=== PATIENT | female | born 1990 | race Caucasian/White ===

== ENCOUNTER → 2019-10-08 15:48 | Outpatient (BNVA) | payer MEDICAID, SELFPAY | PROVIDERS: Family Provider Obstetrics & Gynecology; PCP Family Medicine; Visit Provider Nurse Practitioner Family | DX: S69.91XA Unspecified injury of right wrist, hand and finger(s), initial encounter (principal); W23.0XXA Caught, crushed, jammed, or pinched between moving objects, initial encounter; M79.644 Pain in right finger(s); M79.9 Soft tissue disorder, unspecified | CPT/HCPCS: 73130 ==

== ENCOUNTER 2019-12-04 16:26 | Emergency (ER) | payer MEDICAID, SELFPAY ==
[2019-12-04 16:33] VITALS: BP 119/71; PULSE 109; RESP 17; TEMP 36.6; O2SAT 97; BMI 24.7
--- NOTE | 2019-12-04 17:23 | ED_ITS ---
HPI - URI/Sore Throat General: Chief Complaint: Shortness of Breath/Dyspnea Stated Complaint: fever Time Seen by Provider: 12/04/19 17:05 Source: patient Mode of arrival: ambulatory Limitations: no limitations History of Present Illness: HPI Narrative: Patient is a 29-year-old female who presents to ED today along with several of her children who are also being seen for similar symptoms. Patient states she has had a cough over the past couple of days. Patient states she was told she had a fever when she checked and however documentation states fever was 98.0. She is concerned because she has a son that lives/travels in [facility] and has recently been tested for COVID-19. Results are still pending at this time. Patient states she feels fine and has not been running fevers at home. She states cough is mild and dry. She has not experienced any difficulty breathing or shortness of breath. MD elicited complaint: cough Able to tolerate fluids by mouth: Yes Exacerbating factors: nothing Relieving factors: nothing Context: sick contacts (several childen sick with similar symptoms ) Associated symptoms: Reports no associated symptoms; Deny abdominal pain, chills, chest pain, diarrhea, ear or mastoid pain, fever(s), headache(s), nasal congestion, nausea, sinus pain or vomiting Treatments prior to arrival: none Review of Systems Const: Denies: fever, chills, body aches, change in appetite, change in weight or fatigue Eyes: Denies: change in vision, blurry vision, photophobia, eye discomfort or eye discharge ENMT: Denies: throat pain, enlarged tonsils, painful swallowing, swelling of lips/tongue, oral sores/lesions, ear pain, ear discharge, nasal discharge, nasal congestion, post nasal drip or facial/sinus pain Card: Denies: chest pain, palpitations, irregular heart rhythm, edema, lightheadedness, syncope, pre-syncope, shortness of breath on exertion or shortness of breath when lying down Resp: Reports: non-productive cough; Denies: shortness of breath, productive cough, pain on inspiration, change in phlegm color, coughing up blood or chest congestion GI: Denies: abdominal pain, nausea, vomiting or diarrhea Musc: Denies: neck pain or back pain Skin/Breast: Denies: rash Neuro: Denies: headache All/Imm: Denies: facial swelling or seasonal allergies PFS ED PFSH: Social History (Updated 10/08/19 @ 15:36 by Piper Dang LPN) Smoking and tobacco status: current every day smoker Alcohol intake: never Physical Exam Const: COMMON NORMALS: no apparent distress, average body habitus, oriented x3, no limitations, healthy appearing, alert and well nourished HENMT: COMMON NORMALS: normocephalic, head/scalp atraumatic, hearing grossly normal bilaterally, external ears normal, EAC's normal, TM's normal bilaterally, external nose normal, nasal mucous membranes and turbinates normal, moist oral mucous membranes and oropharynx normal HEAD & SCALP: normal to inspection, normocephalic and atraumatic FACE & SINUS: normal facial exam and sinuses nontender NOSE: external nose normal and nasal mucous membranes and turbinates normal EXTERNAL EAR: Yes external ears normal EXTERNAL AUDITORY CANAL: EAC's normal TYMPANIC MEMBRANE: TM's normal bilaterally THROAT: posterior oropharynx normal, tonsils normal and uvula midline Eye: COMMON NORMALS: PERRL, EOMs intact bilaterally and conjunctivae normal CONJUNCTIVA: Yes conjunctivae normal PUPIL: Yes PERRL Neck/C-Spine: COMMON NORMALS: no lymphadenopathy Resp: COMMON NORMALS: normal respiratory effort and clear to auscultation bilaterally AUSCULTATION: clear to auscultation bilaterally Cardio: COMMON NORMALS: regular rate and regular rhythm RATE: regular rate RHYTHM: regular rhythm Extremity: COMMON NORMALS: normal to inspection Neuro: COMMON NORMALS: oriented x3 SENSORIUM/ORIENTATION: Yes alert Skin: COMMON NORMALS: no rashes or lesions noted GENERAL SKIN EXAM: no rashes or lesions noted Course Vital Signs: Vital signs: Vital Signs Temperature 98 F 12/04/19 16:33 Pulse Rate 109 H 12/04/19 16:33 Respiratory Rate 17 12/04/19 16:33 Blood Pressure 119/71 12/04/19 16:33 Pulse Oximetry 97 12/04/19 16:33 MDM - URI/Sore Throat MDM Narrative: Medical decision making narrative: Patient clinically appears very well. Her lungs are CTA. She has absolutely no complaints of shortness of breath or difficulty breathing. She has not had documented fevers. At this point there is no need for any form of testing from the emergency department as this is not going to change treatment. Based on possible COVID-19 exposure would go ahead and recommend self quarantine. Discharge Plan Discharge Patient Disposition: Home, Self-Care Clinical Impression: Cough Condition: Stable Prescriptions: No Action lamotrigine [Lamictal] 25 mg tablet 75 mg PO DAILY RF: 0 sertraline [Zoloft] 50 mg tablet 75 mg PO DAILY RF: 0 cyclobenzaprine 10 mg tablet 10 mg PO ONCE RF: 0 Discharge Orders: Discharge Order (Routine); Ordered 12/04/19 Ordered By: Latosha Diggs Referrals: Lisette Curry DO [Primary Care Provider] - Roz Brandt DO [Family Provider] - Discharge Diet: Usual diet Discharge Activity: Increase activity as tolerated Activity Restrictions/Additional Instructions: Based on symptoms please self quarantine for at least another week. Coding Level of Care Code ED Property Underwriter for Desirae Ibarra
[2019-12-04 18:19] VITALS: PULSE 110; RESP 18; O2SAT 97
== END 2019-12-04 18:20 | disposition home or self-care (01) ==
PROVIDERS: Emergency Provider Physician Assistant; Family Provider Obstetrics & Gynecology; PCP Family Medicine
DX: R05 Cough (principal); F17.200 Nicotine dependence, unspecified, uncomplicated
CPT/HCPCS: 12345; 99282

== ENCOUNTER → 2020-02-03 09:09 | Outpatient (BNVA) | payer MEDICAID, SELFPAY | PROVIDERS: Family Provider Obstetrics & Gynecology; PCP Family Medicine; Visit Provider Counselor Professional | DX: F31.4 Bipolar disorder, current episode depressed, severe, without psychotic features (principal) | CPT/HCPCS: 90791 ==

== ENCOUNTER → 2020-02-10 10:45 | Outpatient (BNVA) | payer MEDICAID, SELFPAY | PROVIDERS: Family Provider Obstetrics & Gynecology; PCP Family Medicine; Visit Provider Psychiatry & Neurology Psychiatry | DX: F31.9 Bipolar disorder, unspecified (principal); F60.3 Borderline personality disorder; F43.12 Post-traumatic stress disorder, chronic; F41.0 Panic disorder [episodic paroxysmal anxiety]; F09 Unspecified mental disorder due to known physiological condition; F07.89 Other personality and behavioral disorders due to known physiological condition; Z79.899 Other long term (current) drug therapy; Z90.49 Acquired absence of other specified parts of digestive tract; Z98.51 Tubal ligation status; F41.9 Anxiety disorder, unspecified | CPT/HCPCS: 99204 ==

== ENCOUNTER → 2020-02-16 16:11 | Outpatient (BNVA) | payer MEDICAID, SELFPAY | PROVIDERS: Family Provider Obstetrics & Gynecology; PCP Family Medicine; Visit Provider Counselor Professional | DX: F31.4 Bipolar disorder, current episode depressed, severe, without psychotic features (principal) | CPT/HCPCS: 90832 ==

== ENCOUNTER → 2020-02-23 16:05 | Outpatient (BNVA) | payer MEDICAID, SELFPAY | PROVIDERS: Family Provider Obstetrics & Gynecology; PCP Family Medicine; Visit Provider Counselor Professional | DX: F31.9 Bipolar disorder, unspecified (principal) | CPT/HCPCS: 90832 ==

== ENCOUNTER → 2020-03-02 18:00 | Outpatient (BNVA) | payer MEDICAID, SELFPAY | PROVIDERS: Family Provider Obstetrics & Gynecology; PCP Family Medicine; Visit Provider Registered Nurse | DX: F41.9 Anxiety disorder, unspecified (principal); F43.12 Post-traumatic stress disorder, chronic; F31.9 Bipolar disorder, unspecified; F41.0 Panic disorder [episodic paroxysmal anxiety]; Z79.899 Other long term (current) drug therapy | CPT/HCPCS: 80053; 80178; 82607; 84443; 85025 ==

== ENCOUNTER → 2020-05-14 16:52 | Outpatient (BNVA) | payer MEDICAID, SELFPAY | PROVIDERS: Family Provider Obstetrics & Gynecology; PCP Family Medicine; Visit Provider Emergency Medicine | DX: R05 Cough (principal); J10.1 Influenza due to other identified influenza virus with other respiratory manifestations; Z20.828 Contact with and (suspected) exposure to other viral communicable diseases | CPT/HCPCS: 87400; 87635 ==

== ENCOUNTER → 2020-08-30 15:55 | Outpatient (BNVA) | payer MEDICAID, SELFPAY | PROVIDERS: Family Provider Obstetrics & Gynecology; PCP Family Medicine; Visit Provider Nurse Practitioner Family | DX: Z20.828 Contact with and (suspected) exposure to other viral communicable diseases (principal); J06.9 Acute upper respiratory infection, unspecified | CPT/HCPCS: 87635 ==

== ENCOUNTER → 2021-02-02 11:19 | Outpatient (BNVA) | payer MEDICAID, SELFPAY | PROVIDERS: Family Provider Obstetrics & Gynecology; PCP Family Medicine; Visit Provider Registered Nurse | DX: F31.9 Bipolar disorder, unspecified (principal); Z03.89 Encounter for observation for other suspected diseases and conditions ruled out; F41.9 Anxiety disorder, unspecified; F43.12 Post-traumatic stress disorder, chronic; F41.0 Panic disorder [episodic paroxysmal anxiety] | CPT/HCPCS: 36415; 80053; 80061; 82306; 82607; 83036; 83540; 84443; 85025 ==

== ENCOUNTER → 2021-08-29 12:30 | Outpatient (BNVA) | payer MEDICAID, SELFPAY | PROVIDERS: Family Provider Obstetrics & Gynecology; PCP Family Medicine; Visit Provider Nurse Practitioner Family | DX: Z20.822 Contact with and (suspected) exposure to COVID-19 (principal) | CPT/HCPCS: 87635 ==

== ENCOUNTER 2021-09-12 20:00 | Outpatient (CLI) | payer MEDICAID, SELFPAY | END 2021-09-12 20:01 | disposition home or self-care (01) | LOC: SLEEP 09-13 06:31 | PROVIDERS: Family Provider Obstetrics & Gynecology; PCP Family Medicine; Visit Provider Registered Nurse | DX: R06.83 Snoring (principal); R53.83 Other fatigue | CPT/HCPCS: 95810 ==

== ENCOUNTER → 2021-09-29 11:38 | Outpatient (BNVA) | payer MEDICAID, SELFPAY | PROVIDERS: Family Provider Obstetrics & Gynecology; PCP Family Medicine; Visit Provider Emergency Medicine | DX: S09.92XA Unspecified injury of nose, initial encounter (principal); W10.8XXA Fall (on) (from) other stairs and steps, initial encounter | CPT/HCPCS: 70160 ==

== ENCOUNTER → 2022-04-06 08:30 | Outpatient (BNVA) | payer MEDICAID, SELFPAY | PROVIDERS: Family Provider Obstetrics & Gynecology; PCP Family Medicine; Visit Provider Registered Nurse | DX: G47.00 Insomnia, unspecified (principal); G47.10 Hypersomnia, unspecified; R06.83 Snoring; F31.9 Bipolar disorder, unspecified; Z79.899 Other long term (current) drug therapy | CPT/HCPCS: 80053; 80061; 82306; 82607; 83036; 84443; 85025 ==

== ENCOUNTER → 2022-04-18 12:49 | Outpatient (BNVA) | payer MEDICAID, SELFPAY | PROVIDERS: Family Provider Obstetrics & Gynecology; PCP Physician Assistant; Visit Provider Otolaryngology | DX: R06.83 Snoring (principal); J34.2 Deviated nasal septum; J34.3 Hypertrophy of nasal turbinates; K02.9 Dental caries, unspecified; F17.210 Nicotine dependence, cigarettes, uncomplicated | CPT/HCPCS: 99203 ==

== ENCOUNTER → 2022-10-07 11:00 | Outpatient (BNVA) | payer MEDICAID, SELFPAY | PROVIDERS: Family Provider Obstetrics & Gynecology; PCP Physician Assistant; Visit Provider Nurse Practitioner Family | DX: R68.89 Other general symptoms and signs (principal); A08.4 Viral intestinal infection, unspecified | CPT/HCPCS: 87400; 87426 ==

== ENCOUNTER 2023-02-01 08:43 | Day surgery (SDC) | payer MEDICAID, SELFPAY ==
[2023-01-31 10:28] VITALS: BMI 25.2
[2023-02-01] VITALS (11 sets, daily range): BP systolic 118–166; BP diastolic 66–100; PULSE 67–110; RESP 16–22; TEMP 36.1–36.2; O2SAT 94–100
[2023-02-01] MEDS: sodium chloride 0.9% 1,000 ML 30 ML IV (09:12)
--- NOTE | 2023-02-01 09:28 | P.ANESASSM_ITS ---
Pre-Anesthetic Assessment Height/Weight: Height 1.68 m Weight 70.76 kg Temp Pulse Resp BP Pulse Ox O2 Del Method 97 F L 80 18 118/75 100 Room Air 02/01/23 09:05 02/01/23 09:05 02/01/23 09:05 02/01/23 09:05 02/01/23 09:05 02/01/23 09:07 Preop Diagnosis: Obstructive sleep apnea/deviated nasal septum Operation Date: 02/01/23 10:40 Proposed Procedures p [id number] - septoplasty with bilateral turbinate reduction with Uvulopalatopharyngoplasty with bilateral tonsillectomy G47.10,J34.2,J34.3 ,R06. 83,J35.1(Not Applicable) - Alfredo Juares MD s Turbinate Reduction(Bilateral) - Alfredo Juares MD s Uvulopalatopharyngoplasty(Not Applicable) - Alfredo Juares MD s Tonsillectomy(Bilateral) - Alfredo Juares MD Familial anesthetic complications: None Was Beta Tony taken within 24 hours: N/A Was Clonidine taken within 24 hours: N/A Last intake: Intake Last Liquid Date 01/13/23 Last Liquid Time 21:00 Last Solid Date 01/31/23 Last Solid Time 17:00 Social No alcohol and No tobacco former smoker Airway Mallampati: Class II Dentition: false Pulmonary Sleep Apnea CV/HEM skipped beats, 1 pause reported to be up to 9 seconds, and runs of tachycardia for up to 6 seconds, has had loop recorder in for 18 months with no definitive diagnosis given. States she is able to achieve 4 METS without cardiac symptoms. Has had one episode of syncope Anesthetic Plan ASA status: 3 Anesthesia: General Risk of > 500 ml blood loss (7ml/kg in children): No Other Pertinent Information Patient has metal nose ring which she states she is physically unable to remove. patient informed of risk of electrical jeronimo given electrocautery in throat and was even given option of returning to the place that inserted it to remove it and then having surgery. States she wants to proceed today even with risk. Will inform surgeon as well. Medications/Allergies Home Medications Medication Instructions Recorded Confirmed Last Taken Type ibuprofen 800 mg tablet 800 mg PO BID 0701/31/23 01/22/23 History cyclobenzaprine 5 mg tablet 5 mg PO TID PRN muscle relaxer 04/06/22 01/31/23 01/31/23 History cetirizine 10 mg capsule (Zyrtec) 10 mg PO DAILY PRN allergies 04/18/22 01/31/23 01/31/23 History aripiprazole 15 mg tablet 15 mg PO DAILY 30 days #30 tabs 10/24/22 01/31/23 01/31/23 Rx alprazolam 0.5 mg tablet (Xanax) 0.25 mg PO TID PRN anxiety 30 days 11/12/22 01/31/23 01/25/23 Rx #30 tabs hydroxyzine HCl 25 mg tablet 25 - 50 mg PO .at bedtime PRN 12/04/22 01/31/23 01/31/23 Rx insomnia #60 tabs albuterol sulfate 90 mcg/actuation 2 puff inhalation 3XD PRN 01/31/23 01/31/23 12/30/22 History aerosol inhaler (ProAir HFA) Shortness Of Breath escitalopram oxalate 20 mg tablet 20 mg PO DAILY 01/31/23 01/31/23 01/31/23 History Allergies Allergy/AdvReac Type Severity Reaction Status Date / Time nortriptyline Allergy Intermediate rash Verified 01/22/23 14:49 Current Medications Generic Name Dose Route Start Last Admin Trade Name Freq PRN Reason Stop Dose Admin Sodium Chloride 1,000 mls @ 30 mls/hr 02/01/23 09:00 02/01/23 09:12 Sodium Chloride 0.9% IV 02/02/23 08:59 30 mls/hr .Q24H IAIN Administration PFSH Anesthesia Medical History Hypersomnia Psychiatric care Snoring Surgical History H/O tubal ligation Hx of cholecystectomy Family History Mother Hypertension Diabetes Father Hypertension Heart disease Diabetes Social History Smoking and tobacco status: former smoker Quit status (tobacco): considering quitting Second hand smoke exposure: Yes Alcohol intake: never Substance/Drug Use: never Current gender identity: Female Female Reproductive History Date of last menstrual period: 01/17/23 Spontaneous abortions: No Data Anesthesia Cardiac Studies: No Data to Display
--- NOTE | 2023-02-01 09:33 | W.PM.OPSUD ---
Surgery/Procedure H&P Update DATE OF PROCEDURE: February 01, 2023 DATE H&P PERFORMED: 01/22/23 H&P UPDATE INFORMATION: I have reviewed H&P completed within last 30 days, I have examined patient prior to procedure and No changes to prior documentation CHANGES TO PREVIOUS DOCUMENTATION: No changes PREOP DIAGNOSIS: Obstructive sleep apnea/deviated nasal septum PRIMARY INDICATION FOR PROCEDURE: Obstructive sleep apnea with tonsillar hypertrophy low hanging soft palate hypertrophic uvula and deviated nasal septum with turbinate hypertrophy PLANNED PROCEDURE: Operation Date: 02/01/23 10:40 Proposed Procedures p [id number] - septoplasty with bilateral turbinate reduction with Uvulopalatopharyngoplasty with bilateral tonsillectomy G47.10,J34.2,J34.3 ,R06.83,J35.1(Not Applicable) - Alfredo Juares MD s Turbinate Reduction(Bilateral) - Alfredo Juares MD s Uvulopalatopharyngoplasty(Not Applicable) - Alfredo Juares MD s Tonsillectomy(Bilateral) - Alfredo Juares MD
[2023-02-01] MEDS: midazolam 1 mg/mL INJ 2 mL 2 MG IVP (09:41)
[2023-02-01] MEDS: ceFAZolin 2,000 MG in sodium chloride 0.9% (plus) 50 ML 100 MG IV (11:05)
[2023-02-01] MEDS: oxymetazoline 0.05% Nasal Spray 15 mL 1 SPRAY NOSTRIL-B (12:09)
[2023-02-01] MEDS: lidocaine-epi 2% 1.7mL Cartridge (OR Only) 10 ML XX (12:09)
--- NOTE | 2023-02-01 12:39 | PM.OP ---
Operative Report Date of procedure: February 01, 2023 Pre-op diagnosis: Preop Diagnosis Obstructive sleep apnea/deviated nasal septum Post-op diagnosis: Same Post-op findings: Deviated nasal septum inferiorly to the left side with 3+ turbinate hypertrophy. 3+ tonsils cryptic and with multiple stones with elongated thickened uvula and low hanging soft palate Procedure done: Uvulopalatopharyngoplasty with tonsillectomy. Septoplasty. Bilateral inferior turbinate intramural cauterization with outfracturing. Implants: 2 septal splints and 2 Telfa packs. Specimens removed/disposition: Tonsils with soft palate and uvula attached. Septal cartilage and bone. Pathology: Tonsils with portion of soft palate and uvula Surgeon: Alfredo Juares MD Anesthesia: General and Local Estimated blood loss: 25 mL Complications: No complications encountered Findings: Tonsils 3+ cryptic with multiple stones. Low hanging thickened soft palate and uvula. Deviated nasal septum to the left side. Turbinate hypertrophy 3+ bilateral. Brief History: 32-year-old female patient has had problems with obstructive sleep apnea with a combination of problems including tonsillar hypertrophy low hanging soft palate hypertrophic uvula and deviated nasal septum with turbinate hypertrophy. Patient is being brought to the operating room at this time to undergo uvulopalatopharyngoplasty with tonsillectomy and septoplasty with turbinate reduction. The procedure its risks and complications have been explained in detail. These risks include bleeding delayed bleeding infection sore throat voice change nasal regurgitation regrowth need for additional treatment tongue numbness or taste sensation change referred pain to the ears neck soreness or stiffness bad breath septal hematoma abscess or perforation change in sense of smell nasal dryness and more severe risks associated with anesthesia. With these things understood informed consent was granted and witnessed. Procedure: Description of procedure: The patient was placed on the operating table in the supine position. Adequate general endotracheal tube anesthesia was obtained. Patient was given Ancef IV for prophylaxis and Decadron to help with postoperative edema. The patient was repositioned into a semirecumbent position. Her nose was packed with cottonoids soaked in 12-hour Afrin. Her left nasal piercing was removed. Nasal hairs were trimmed with scissors. Packing was removed and the septum and inferior turbinates were infiltrated with local. A total of 8.5 mL of 2% Xylocaine with 1-100,000 epinephrine was utilized. The Afrin packs were reapplied to the nose and the patient was prepped and draped in usual fashion. The Afrin packs were removed from the nose. A left hemitransfixion incision was created with a 15 blade carrying it down to the level of the septal cartilage. A mucoperichondrial periosteal flap was then raised on the left side in all directions. The inferior turbinates were outfractured with a Bristol elevator. An inferior strip of quadrangular cartilage that was off the crest of the left side was resected removing approximately 3 mm of height. The quadrangular cartilage was then disarticulated from the perpendicular plate of the ethmoid and vomer. Then a posterior tunnel was created on the right side. Bony septal spur was resected in a piecemeal fashion with Taz forceasad. Trimming at the junction of the cartilage and bone was accomplished superiorly. With this accomplished the septum now rested in a good straight midline position. Sedation Raynaud's were created bilaterally to prevent hematoma formation. Then 4-0 chromic suture was used to close the hemitransfixion incision. Interrupted sutures were used. Then 2 septal splints were coated with Neosporin and 1 was applied each side of the septum. These were then sutured in a through and through fashion with 3-0 Prolene. 2 Telfa packs were then coated with Neosporin cut to size and 1 applied each side of the nose. With this accomplished attention was now turned to the UPPP with tonsillectomy. The table was rotated 90 degrees. It was flattened out. Head was dropped 15 degrees to the horizontal. Drapes were still in place. A Linda Jerrod mouthgag was inserted over the endotracheal tube and tongue and the upper gingiva was placed into the guard over her alveolar ridge. Dentures were removed prior to this. Then the mouthgag was opened and suspended from a rolled towel placed on her chest. It was decided to remove the soft palate portion with the uvula and extended over to removal of the left tonsil. This was done with the Coblator on ablation and coagulation modes. After removal of left tonsil and the soft palate and uvula a similar procedure was performed to remove the right tonsil. Spot cauterization was then performed to obtain complete hemostasis. This was all done with the Coblator. Then suturing of the anterior and posterior mucosal edges on the soft palate were accomplished. 3-0 chromic sutures were used. After assuring that there was no bleeding the area was irrigated and manipulated with finger and suction to assure that there was no bleeding. Then the mouthgag was released and the tongue and neck were massaged. The mouthgag was reopened. No bleeding was evident. The mouthgag was released and removed. Patient's head was returned to the upright position. Head drape and tape were removed. The face was cleansed. A drip pad was applied under the patient's nose and taped to the cheeks. Patient was then returned to anesthesia for wake-up and extubation. She tolerated the procedure well had an estimated blood loss of 25 mL total and arrived in recovery in stable condition.
[2023-02-01] MEDS: ondansetron 2 mg/ML SDV 2 mL 4 MG IVP (13:00)
[2023-02-01] MEDS: meperidine 50 mg/mL INJ 12.5 MG IVP (13:00)
[2023-02-01] MEDS: HYDROcodone-APAP 7.5-325 mg/15 mL UDC PO (13:25)
--- NOTE | 2023-02-01 13:27 | ANE.PACU2 ---
Inpatient post-anesthesia follow up: Airway intact: Yes Vital signs: Temperature 97.1 F Pulse Rate 70 Respiratory Rate 16 Blood Pressure 142/88 Pulse Oximetry 94 Oxygen Delivery Me thod Room Air Oxygen Flow Rate 6 Fraction of Inspir ed Oxygen Hydration adequate: Yes Nausea and vomiting: No Pain level: 1 Mental status: Baseline
== END 2023-02-01 14:02 | disposition home or self-care (01) ==
PROVIDERS: PCP Physician Assistant; Visit Provider Otolaryngology
PROC: (CPT 30520; principal; 2023-02-01 10:30)
PROC: (CPT 30140; 2023-02-01 10:30)
PROC: (CPT 42145; 2023-02-01 10:30)
PROC: (CPT 30140; 2023-02-01 10:30)
DX: J35.01 Chronic tonsillitis (principal); G47.33 Obstructive sleep apnea (adult) (pediatric); J34.2 Deviated nasal septum; J34.3 Hypertrophy of nasal turbinates; R06.83 Snoring; Z87.891 Personal history of nicotine dependence; I49.8 Other specified cardiac arrhythmias
CPT/HCPCS: 30140; 30520; 42145; 81025; 88304; J0690; J1100; J1200; J2175; J2250; J2405; J2704; J3010; J3490; J7030

== ENCOUNTER 2023-02-04 19:26 | Inpatient (IN) | payer MEDICAID, SELFPAY ==
[2023-02-04 19:32] VITALS: BP 117/76; PULSE 117; RESP 18; TEMP 36.4; O2SAT 96; BMI 27.4
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
[2023-02-04 20:03] LABS: Basophils # 0.1 10^3/uL (0.0-0.1); Basophils % 0.5 %; Eosinophils # 0.1 10^3/uL (0.0-0.8); Eosinophils % 0.5 %; Hematocrit 46.2 % (37.0-47.0); Hemoglobin 15.5 g/dL (11.5-15.3); Lymphocytes # 2.4 10^3/uL (0.8-4.8); Lymphocytes % 19.1 %; Mean Corpuscular HGB Conc 33.5 g/dL (30.0-36.0); Mean Corpuscular Hemoglobin 31.4 pg (28.0-34.0); Mean Corpuscular Volume 93.7 fl (81-99); Monocytes # 0.7 10^3/uL (0.2-0.9); Monocytes % 5.3 %; Neutrophils # 9.26 10^3/uL (1.8-7.7); Neutrophils % 74.1 %; Nucleated Red Blood Cells % 0 %; Platelet Count 457 10^3/cmm (130-400); Red Blood Count 4.93 10^6/uL (4.1-5.3); Red Cell Distribution Width 11.5 % (12.1-15.1); White Blood Count 12.5 10^3/uL (4.0-10.0)
[2023-02-04 20:14] LABS: Alanine Aminotransferase 31 U/L (0-33); Albumin Level 4.5 g/dL (3.5-5.2); Alkaline Phosphatase 101 U/L (35-105); Aspartate Amino Transferase 25 U/L (0-32); Blood Urea Nitrogen 10 mg/dL (6-20); Carbon Dioxide 24 mmol/L (22-29); Chloride 101 mmol/L (98-107); Globulin 3.4 g/dL (1.3-4.6); Glomerular Filtration Rate 98.3 mL/min (90-130); Glucose 105 mg/dL (65-115); Osmolality Calculated 285 mOsm/kg (285-295); Sodium 138 mmol/L (136-145); Total Bilirubin 0.4 mg/dL (0.15-1.2); Total Protein 7.9 g/dL (6.6-8.7)
[2023-02-04 20:23] LABS: Acetaminophen < 5.0 ug/mL (10-30); Alcohol Level < 10 mg/dL (0-10); Salicylate < 0.3 mg/dL (3-10)
[2023-02-04] MEDS: ketorolac 60 mg/2 mL INJ IM (20:48)
[2023-02-04 21:09] LABS: Amphetamines Screen Urine Negative (Negative); Barbiturates Screen Urine Negative (Negative); Benzodiazepines Screen Urine Negative (Negative); Cocaine Screen Urine Negative (Negative); Opiate Screen Urine Positive (Negative); PCP Screen Urine Negative (Negative); THC Screen Urine Negative (Negative)
[2023-02-04 21:23] LABS: Blood Urine Neg (Negative); Glucose Urine UA Norm (Normal); Ketones Urine 3+ (Negative); Nitrate Urine Negative (Negative); Protein Urine 1+ (Negative); Urine Appearance Clear (CLEAR); Urine Color Yellow (Yellow); pH Urine 5 (5-7)
[2023-02-04 21:24] LABS: Add Urine Microscopic? YES; Bilirubin Urine Neg (Negative); Leukocyte Esterase Urine Negative (Negative); Urobilinogen Urine 1 mg/dL (Negative)
[2023-02-04 21:25] LABS: Bacteria Urine 1+ /hpf; Mucus Urine 2+ /hpf; RBC Urine 0-4 /hpf (0-2); WBC Urine 0-4 /hpf (0-5)
[2023-02-04 21:32] LABS: HCG Qualitative Urine. Negative (Negative)
[2023-02-04 22:58] VITALS: BP 130/83; PULSE 84; RESP 16; O2SAT 95
[2023-02-05 01:15] VITALS: BP 115/68; PULSE 98; RESP 16; O2SAT 95
[2023-02-05 01:23] VITALS: BP 112/81; PULSE 97; RESP 18; TEMP 36.6; O2SAT 97
[2023-02-05] MEDS: trazodone 50 mg Tablet PO (01:43)
[2023-02-05] MEDS: hyDROXYzine 25 mg Capsule 50 MG PO (01:43)
--- NOTE | 2023-02-05 01:44 | PC.NURSE ---
Pt admitted to [facility], RN and data security administrator at side. Pt is well kept, tearful and anxious at this time. Will administer PRNs.
[2023-02-05 06:00] VITALS: BP 114/77; PULSE 89; RESP 16; TEMP 36.7; O2SAT 93
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
[2023-02-05] MEDS: phenol oral Spray 177 mL 3 SPRAY MUCOUS MEM (10:01)
[2023-02-05] MEDS: ARIPiprazole 30 mg Tablet 15 MG PO (10:01)
[2023-02-05] MEDS: escitalopram 10 mg Tablet 20 MG PO (10:02)
[2023-02-05] MEDS: ibuprofen 800 mg tablet PO ×2 (10:02→22:11)
[2023-02-05] MEDS: HYDROcodone-APAP 7.5-325 mg/15 mL UDC PO ×2 (12:15→18:22)
[2023-02-05 14:00] VITALS: BP 99/65; PULSE 97; RESP 12; TEMP 36.4; O2SAT 95
[2023-02-05] MEDS: lurasidone 20 mg Tablet PO (18:22)
[2023-02-05 20:39] VITALS: BP 111/73; PULSE 82; RESP 16; TEMP 36.1; O2SAT 95
[2023-02-05] MEDS: lamoTRIgine 25 mg Tablet PO (22:11)
[2023-02-06 06:00] VITALS: BP 130/82; PULSE 102; RESP 16; TEMP 37.1; O2SAT 94
[2023-02-06] MEDS: ARIPiprazole 10 mg Tablet PO (09:56)
[2023-02-06] MEDS: lamoTRIgine 25 mg Tablet PO (09:56)
[2023-02-06] MEDS: escitalopram 10 mg Tablet PO (09:56)
[2023-02-06] MEDS: ibuprofen 800 mg tablet PO (09:56)
[2023-02-06] MEDS: ALPRAZolam 0.5 mg Tablet 0.25 MG PO (13:22)
[2023-02-06 13:32] VITALS: BP 127/67; PULSE 112; RESP 16; TEMP 36.4; O2SAT 96
[2023-02-06 14:28] VITALS: BP 127/67; PULSE 112; RESP 16; TEMP 36.4; O2SAT 96
[2023-02-06 15:20] VITALS: BP 127/67; PULSE 112; RESP 16; TEMP 36.4; O2SAT 96
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
--- NOTE | 2023-02-06 16:27 | PC.NURSE ---
written discharge instruction discussed and left with patient. pt states understanding and compliance pt left in pov with parent at [id number]
== END 2023-02-06 16:17 | disposition home or self-care (01) | DRG 885 ==
LOC: ER 22:02 → NP 22:10
PROVIDERS: Emergency Medicine; Admitting Provider Psychiatry & Neurology Psychiatry; Emergency Provider Family Medicine; PCP Physician Assistant; Visit Provider Psychiatry & Neurology Psychiatry
DX: F31.81 Bipolar II disorder (principal); R45.851 Suicidal ideations; Z87.891 Personal history of nicotine dependence; G47.10 Hypersomnia, unspecified; G47.30 Sleep apnea, unspecified; F43.10 Post-traumatic stress disorder, unspecified; Z91.411 Personal history of adult psychological abuse; Z91.410 Personal history of adult physical and sexual abuse; Z62.810 Personal history of physical and sexual abuse in childhood
CPT/HCPCS: 80053; 80306; 80307; 81001; 81025; 85025; 96372; 97165; 99238; 99285; J1885

== ENCOUNTER → 2023-03-08 09:41 | Outpatient (BNVA) | payer SELFPAY | PROVIDERS: PCP Physician Assistant; Visit Provider Registered Nurse | DX: Z79.899 Other long term (current) drug therapy (principal) | CPT/HCPCS: 80053; 80061; 82306; 83036; 84443; 85025 ==